=== PATIENT | female | born 1985 | race Caucasian/White ===

== ENCOUNTER 2017-09-12 09:32 | Emergency (ER) | payer SELFPAY ==
[~2017-09-12] VITALS: Ht 154.9 cm; Wt 73.5 kg
[2017-09-12 09:38] VITALS: BP 116/73
--- NOTE | 2017-09-12 12:00 | NUR ---
NO ANSWER IN ER LOBBY
== END 2017-09-12 12:00 | disposition left against medical advice (07) ==
LOC: MED 09:32
DX: O46.91 Antepartum hemorrhage, unspecified, first trimester (principal); Z3A.01 Less than 8 weeks gestation of pregnancy; Z53.21 Procedure and treatment not carried out due to patient leaving prior to being seen by health care provider